=== PATIENT | female | born 1995 | race Caucasian/White ===

== ENCOUNTER 2024-08-11 21:45 | Inpatient (IN) | payer OTHER ==
[2024-08-11] MEDS ORDERED: BUTORPHANOL TARTRATE 2 MG/ML VIAL IVPB PRN (22:20)
[2024-08-11] MEDS: DEXTROSE 5%-LACTATED RINGERS 1,000 ML IV SCH (22:30)
[2024-08-11 22:44] LABS: ABSOLUTE IMMATURE GRANULOCYTES 0.03 x10^3/uL (0.0-0.031); BASOPHILS # 0.03 x10^3/uL (0.01-0.08); EOSINOPHIL % 0.5 % (0.7-5.8); EOSINOPHILS # 0.04 x10^3/uL (0.04-0.36); HEMATOCRIT 38.4 % (34.1-44.9); HEMOGLOBIN 13.3 g/dL (11.2-15.7); MCHC 34.6 g/dl (32.2-35.5); MEAN CELL VOLUME 92.5 fl (79.4-94.8); MEAN PLT VOLUME 10.7 fl (9.4-12.3); MONOCYTE # 0.29 x10^3/uL (0.24-0.86); MONOCYTE % 3.7 % (4.7-12.5); PLATELET COUNT 151 x10^3/uL (182-369); RDW 13.4 % (12.1-16.5)
[2024-08-11 23:08] VITALS: BMI 27.7
[2024-08-11 23:10] LABS: POTASSIUM 3.8 mmol/L (3.5-5.1)
[2024-08-11] MEDS: DINOPROSTONE 10 MG VAGINAL SUPPOSITORY VG ONE (23:10)
[2024-08-11 23:11] LABS: CALCIUM 9.3 mg/dL (8.5-10.1)
[2024-08-11 23:12] LABS: BLOOD UREA NITROGEN 9.6 mg/dL (7-18); INR 0.94 (0.83-1.09); PROTHROMBIN TIME (PATIENT) 10.2 SEC (9.7-13.0)
[2024-08-11 23:15] LABS: ACTIVATED PTT 24.5 SECONDS (25.2-36.5); CREATININE 0.6 mg/dL (0.55-1.3)
[2024-08-11 23:58] LABS: METHADONE, UR NEGATIVE (NEGATIVE); OPIATES, URI NEGATIVE (NEGATIVE); PHENCYCLIDINE,URINE NEGATIVE (NEGATIVE); URINE BARBITURATES NEGATIVE (NEGATIVE)
[2024-08-12 00:07] LABS: HIV INTERPRETATION NEGATIVE (NEGATIVE)
[2024-08-12 00:34] LABS: COCAINE, UR NEGATIVE (NEGATIVE); URINE AMPHETAMINES NEGATIVE (NEGATIVE); URINE BENZODIAZEPINES NEGATIVE (NEGATIVE)
[2024-08-12] MEDS ORDERED: PROMETHAZINE HCL 25 MG/1 ML VIAL IVPB PRN (02:00)
[2024-08-12] MEDS ORDERED: OXYTOCIN 30 UNITS in 0.9% NS 30 UNIT/500 ML INFUS.BAG IVPB ONE (08:44)
[2024-08-12] MEDS: OXYTOCIN 30 UNITS in 0.9% NS 30 UNIT/500 ML INFUS.BAG IVPB SCH (08:47)
[2024-08-12] MEDS ORDERED: FENTANYL/BUPIVACAINE/NS/PF - PCEA - 50 ML DISP.SYRIN EP ONE ×2 (09:43→15:04)
[2024-08-12] MEDS ORDERED: FENTANYL CITRATE/PF 50 MCG/ML VIAL ONE (09:45)
[2024-08-12] MEDS ORDERED: BUPIVACAINE HCL/PF 0.25% (2.5MG/ML) 10 ML VIAL ONE (09:45)
[2024-08-12] MEDS ORDERED: NALOXONE HCL 0.4 MG/ML VIAL IVPUSH PRN (09:49)
[2024-08-12] MEDS: ELECTROLYTE-148 SOLN 1,000 ML IV ONE (09:55)
[2024-08-12] MEDS: FENTANYL/BUPIVACAINE/NS/PF - PCEA - 50 ML DISP.SYRIN EP SCH (10:05)
[2024-08-12] MEDS: ELECTROLYTE-148 SOLN 1,000 ML IV SCH (10:25)
[2024-08-12] MEDS ORDERED: OXYTOCIN 20 UNITS in 0.9% NS 20 UNIT/1,000 ML INFUS.BAG IV ONE (16:30)
[2024-08-12] MEDS ORDERED: LIDOCAINE HCL 1% PRESERVATIVE FREE - 30ML VIAL ONE (16:30)
[2024-08-12] MEDS ORDERED: METHYLERGONOVINE MALEATE 0.2 MG/1 ML AMP IM PRN (19:13)
[2024-08-12] MEDS ORDERED: oxyCODONE HCL 5 MG TABLET PO PRN (19:13)
[2024-08-12] MEDS ORDERED: BISACODYL 10 MG SUPP.RECT RC PRN (19:13)
[2024-08-12] MEDS: OXYTOCIN 20 UNITS in 0.9% NS 20 UNIT/1,000 ML INFUS.BAG IV SCH (19:15)
[2024-08-12] MEDS ORDERED: IBUPROFEN 600 MG TABLET (FP) PO ONE (21:52)
[2024-08-12] MEDS: IBUPROFEN 600 MG TABLET (FP) PO PRN (21:55)
[2024-08-12] MEDS: BENZOCAINE 20% 57 GM BOTTLE TP PRN (22:32)
[2024-08-12] MEDS: WITCH HAZEL 50% (TUCKS) 40 PAD/JAR PAD TP PRN (22:34)
[2024-08-13] MEDS: ACETAMINOPHEN 325 MG TABLET (FP) PO PRN (00:48)
[2024-08-13] MEDS: BENZOCAINE 28 GM HEMORRHOIDAL OINTMENT TP PRN (02:40)
[2024-08-13 07:12] LABS: ABSOLUTE IMMATURE GRANULOCYTES 0.06 x10^3/uL (0.0-0.031); BASOPHILS # 0.03 x10^3/uL (0.01-0.08); EOSINOPHIL % 1.2 % (0.7-5.8); EOSINOPHILS # 0.13 x10^3/uL (0.04-0.36); HEMATOCRIT 28.2 % (34.1-44.9); HEMOGLOBIN 9.8 g/dL (11.2-15.7); MCHC 34.8 g/dl (32.2-35.5); MEAN CELL VOLUME 93.7 fl (79.4-94.8); MEAN PLT VOLUME 10.7 fl (9.4-12.3); MONOCYTE # 0.56 x10^3/uL (0.24-0.86); MONOCYTE % 5.2 % (4.7-12.5); PLATELET COUNT 123 x10^3/uL (182-369); RDW 13.3 % (12.1-16.5)
[2024-08-13] MEDS: FERROUS SO4 325 MG TABLET (FP) PO SCH (17:33)
[2024-08-13] MEDS ORDERED: SENNOSIDES/DOCUSATE COMBO (SENNA PLUS) TABLET (UD) PO PRN (22:00)
[2024-08-14 09:14] VITALS: BP 102/61; PULSE 56; RESP 17; TEMP 97.3
== END 2024-08-14 19:25 | disposition home or self-care (01) | DRG 560 ==
LOC: JLDR 21:45 → J3W 08-12 22:41
PROVIDERS: ADMIT Obstetrics & Gynecology; ATTEND Specialist
PROC: 10E0XZZ Delivery of Products of Conception, External Approach (ICD-10-PCS; principal; 2024-08-12)
PROC: 0W8NXZZ Division of Female Perineum, External Approach (ICD-10-PCS; 2024-08-12)
PROC: 3E0P7VZ Introduction of Hormone into Female Reproductive, Via Natural or Artificial Opening (ICD-10-PCS; 2024-08-12)
DX: O48.0 Post-term pregnancy (principal); Z3A.40 40 weeks gestation of pregnancy; Z37.0 Single live birth
CPT/HCPCS: 36415; 59409; 80048; 80307; 85025; 85610; 85730; 86780; 86850; 86900; 86901; 87389